=== PATIENT | female | born 1950 | race Caucasian/White ===

== ENCOUNTER 2025-03-06 14:45 | Emergency (ER) | payer MEDICARE, OTHER, SELFPAY ==
[2025-03-06 14:48] VITALS: BP 158/102; PULSE 94; RESP 18; TEMP 36; O2SAT 99; BMI 21.7
--- NOTE | 2025-03-06 15:27 | EX.ED.DYSGE1 ---
HPI History of Present Illness Chief Complaint: Other, Pain/Inj Narrative Narrative: Patient 75-year-old female who presents to the emergency department with a chief complaint of neck pain status has been going on for a extended period time approximately 2 years however she states that send is driving home from [place] to visit family she notes that her pain had significantly worsened. She denies any injuries or trauma to her neck recently. Patient denies any history of IV drug use she states that she does smoke and denies any alcohol use. She states that she can only take Tylenol as NSAIDs make her restless leg syndrome worse. She states that she tried Tylenol without much relief prompting her to come here to be further evaluated [facility] Home Medications ?Medication ?Instructions ?Recorded ?Last Taken ?Type cyclobenzaprine 5 mg tablet 5 mg PO TID PRN muscle spasm #14 03/06/25 Unknown Rx tabs Allergy/AdvReac Type Severity Reaction Status Date / Time NSAIDS (Non-Steroidal AdvReac Other Verified 03/06/25 14:50 Anti-Inflamma Social History Smoking Status: Current every day smoker tobacco type: cigarettes ROS ROS ED ROS Narrative Constitutional: Denies any fevers, chills, headaches Eyes: Denies double vision Cardiovascular: Denies chest pain Respiratory: Denies shortness of breath Abdomen: Denies nausea vomit diarrhea Neurological: Denies any numbness, weakness, tingling Musculoskeletal: Complains of neck pain as noted above Skin: Denies any rashes or lesions EXAM Physical Exam Narrative Exam Narrative: General: Patient was lying in bed resting comfortably did not appear to be in acute distress Head: Atraumatic, normocephalic Eyes: PERRL bilaterally, EOMI bilaterally, no conjunctival injection noted Neck: Soft, supple, trachea midline, patient has no tenderness to palpation in the midline of the cervical spine no concern for meningitis Cardiovascular: Regular rate and rhythm Respiratory: Clear to auscultation bilaterally Extremities: +5/5 strength in the bilateral lower extremities Neurological: Patient is following commands knew that she was at [facility] year is 2024 sensation grossly intact Skin: Warm, dry, intact no rashes or lesions noted Const Vital Signs: 03/06/25 14:48 03/06/25 15:18 Temperature 96.8 F L Temperature Source Temporal Pulse Rate 94 Respiratory Rate 18 Respiratory Pattern Normal Blood Pressure 158/102 H Blood Pressure Mean 120 Pulse Ox 99 Oxygen Delivery Method Room Air MDM MDM MDM Narrative Medical decision making narrative: Patient is a 75-year-old female who presented to the emergency department the chief complaint of neck pain. On the differential diagnose includes but not limited to musculoskeletal strain, compression fracture, pathological fracture although have low suspicion for these based on her clinical exam. Patient will be given IM morphine and Norflex and be reevaluated X-ray showed reversal of cervical or dosis at C3-C4 may be due to spasm positioning or ligamentous injury she did not have any trauma or injuries to her neck. Multilevel spondylosis, multilevel degenerative disc disease. On reevaluation the patient she is feeling better she would like to go home at this point in time. Patient was advised to take Tylenol for pain control as well as use the muscle relaxer as prescribed for severe pain and she was advised to not operate anything under the influence this medication. She was advised while in [facility] [address] if anything is to change or worsen she should return to the emergency department immediately. She is agreeable this plan all question concerns answered she was discharged home in stable condition. Radiography Diagnostic Testing: Clinical Impression(s) from Imaging Studies Cervical Spine X-Ray 03/06/25 16:35 IMPRESSION: Reversal of the cervical lordosis at C3-C4 may be due to spasm, positioning, or ligamentous injury. Multilevel spondylosis. Multilevel degenerative disc disease. Reading Location: [place] [id number] Discharge Plan Triage Chief Complaint: Other, Pain/Inj ED Provider: Savage Perez Dx/Rx/DC Orders Clinical Impression: Musculoskeletal strain, Neck pain Prescriptions: New cyclobenzaprine 5 mg tablet 5 mg PO TID PRN (Reason: muscle spasm) Qty: 14 0RF Primary Care Provider: [facility] Doctor,Out of Referrals: [facility] Doctor,Out of [Primary Care Provider, Medical] Activity Restrictions/Additional Instructions: Take Tylenol for pain control max dose Tylenol 24 hours 4000 mg. Use muscle relaxer as prescribed do not operate anything under the influence of this medication as it will make you sleepy and drowsy. Your x-ray did not show any acute findings. Return with worsening symptoms or any other concerns Print Language: German Disposition Disposition: Home, Self Care
[2025-03-06] MEDS: Orphenadrine 60 MG/2 ML Ampul 30 MG IM (16:21)
--- NOTE | 2025-03-06 16:35 | RAD_ITS ---
PROCEDURE: CERV SPINE 2 OR 3 VIEWS 03/06/2025 REASON FOR EXAM: PAIN TECHNIQUE: Procedure Code: RADSPCL Modality: DX Procedure: CERV SPINE 2 OR 3 VIEWS COMPARISON: No relevant prior. FINDINGS: Vertebrae: Normal in height. Multilevel spondylosis. Disc spaces: Generalized narrowing of the intervertebral disc spaces, C4-5, C5- 6, C6-7, and C7-T1. Alignment: Reversal of the cervical lordosis at C3-4. No anterolisthesis or retrolisthesis. Soft tissues: Unremarkable Other: Atlantoaxial articulation is maintained. Pacer generator and leads are noted projecting over the right hemithorax. RAD/Cerv Spine 2 or 3 Views IMPRESSION: Reversal of the cervical lordosis at C3-C4 may be due to spasm, positioning, or ligamentous injury. Multilevel spondylosis. Multilevel degenerative disc disease. Reading Location: [place] [address]
[2025-03-06 17:09] VITALS: BP 168/86; PULSE 70; RESP 15; TEMP 36.6; O2SAT 99
== END 2025-03-06 17:14 | disposition home or self-care (01) ==
PROVIDERS: Emergency Provider Emergency Medicine; Visit Provider Emergency Medicine
DX: S16.1XXA Strain of muscle, fascia and tendon at neck level, initial encounter (principal); X58.XXXA Exposure to other specified factors, initial encounter; F17.210 Nicotine dependence, cigarettes, uncomplicated
CPT/HCPCS: 72040; 96372; 99282